=== PATIENT | female | born 1975 | race Caucasian/White ===

== ENCOUNTER 2023-07-27 13:55 | Emergency (ER) | payer BC, SELFPAY ==
[2023-07-27] VITALS (12 sets, daily range): BP systolic 119–144; BP diastolic 72–90; PULSE 56–81; RESP 10–29; TEMP 37; O2SAT 90–99; BMI 28.9
--- NOTE | 2023-07-27 14:11 | ECG_ITS ---
[facility] Test Date: 2023-07-27 Pat Name: RICK WHITE Department: Room: - Gender: Female Laboratory Associate: : 1975 Requested By: [id number] Order Number: [id number] Reading MD: KYLE ALICIA Measurements Intervals [place] Rate: 64 P: 53 [place]: 192 QRS: -31 QRSD: 88 T: 53 QT: 392 QTc: 401 Interpretive Statements 1100 Sinus rhythm 7200 Abnormal left axis deviation 8102 Low QRS voltage in chest leads 9150 abnormal ECG No previous ECG available for comparison Electronically Signed On 07-28-2023 7:04:37 EST by KYLE ALICIA
--- NOTE | 2023-07-27 14:13 | ED.CHESTPAI1 ---
HPI - Chest Pain General Chief Complaint: Chest Pain Stated Complaint: CHEST PAIN Time Seen by Provider: 07/27/23 13:59 Source: patient Mode of arrival: walk-in Limitations: no limitations History of Present Illness HPI narrative: Patient is a 48-year-old female who presents to the emergency department for the evaluation of chest pain in the left upper chest that began this morning on waking at 6 AM. She reports an associated headache. She has had no fevers, cough, congestion. She states she was exposed to COVID but has not had any other flulike illness. No vomiting or diarrhea. She is not concerned for . She has no history of coronary artery disease. She does take medication for high cholesterol. She states she quit smoking 4 to 5 years ago. She has had no peripheral edema. She does take medications for anxiety and GERD. She states pain is worse with inspiration. She has had 2 previous episodes this week, she has not been evaluated for these. No pain radiation to the jaw or the arm. Risk Factors Coronary artery disease risk factors: hyperlipidemia Related Data Home Medications Medication Instructions Recorded Confirmed No Known Home Medications 07/27/23 07/27/23 Previous Rx's Medication Instructions Recorded methylprednisolone 4 mg tablets in See Rx Instructions .Route 07/27/23 a dose pack (Medrol (Ray)) .COMPLEX #21 ea Allergies Allergy/AdvReac Type Severity Reaction Status Date / Time No Known Drug Allergies Allergy Verified 07/27/23 14:00 Review of Systems ROS Constitutional Denies: fever or chills Ears, nose, mouth, and throat Denies: throat pain Cardiovascular Reports: chest pain Respiratory Reports: pain on inspiration; Denies: cough or coughing up blood Gastrointestinal Denies: abdominal pain, nausea or vomiting Musculoskeletal Denies: back pain Integumentary/Breast Denies: rash Neurological Denies: headache Psychiatric Reports: anxiety PFSH PFSH Social History Smoking status: Former smoker Exam Narrative Exam Narrative: Gen.: Awake, alert, in no distress Head: Normocephalic, atraumatic ENT: Moist mucous membranes Respiratory: No respiratory distress, lungs clear bilaterally Cardio: Regular rate and rhythm Gastrointestinal: Abdomen is soft, nondistended and nontender to palpation Extremities: Moves extremities equally, no pedal edema Psych: Normal mood and affect Neuro: No focal neuro deficit Skin: Warm, dry, intact Constitutional Vital Signs, click to edit/add: Last Vital Signs Temp 98.6 F 07/27/23 14:00 Pulse 61 07/27/23 14:00 Resp 18 07/27/23 14:00 BP 144/90 H 07/27/23 14:00 Pulse Ox 99 07/27/23 14:00 O2 Del Method Room Air 07/27/23 14:00 Course Vital Signs Vital signs: Vital Signs Temperature 98.6 F 07/27/23 14:00 Pulse Rate 61 07/27/23 14:00 Respiratory Rate 18 07/27/23 14:00 Blood Pressure 144/90 H 07/27/23 14:00 Pulse Oximetry 99 07/27/23 14:00 Oxygen Delivery Method Room Air 07/27/23 14:00 Temperature 98.6 F 07/27/23 14:00 Pulse Rate 61 07/27/23 14:00 Respiratory Rate 18 07/27/23 14:00 Blood Pressure 144/90 H 07/27/23 14:00 Pulse Oximetry 99 07/27/23 14:00 Oxygen Delivery Method Room Air 07/27/23 14:00 MDM - Chest Pain MDM Narrative Medical decision making narrative: Lab studies including D-dimer, troponin within normal limits, no acute EKG changes noted. Chest x-ray shows no evidence of acute cardiopulmonary changes. Patient medicated with IV fluids, aspirin, Toradol. She refused a COVID screen. She is discharged home with Medrol Dosepak for suspected pleurisy versus chest wall pain. Follow-up with PCP and return to the ER if symptoms change or worsen. Medical Records Data Attestation: I reviewed the patient's medical records. Lab Data Attestation: I reviewed the patient's lab results. Labs: Lab Results 07/27/23 Range/Units 14:15 WBC 6.1 (4.0-11.0) 10^3/uL RBC 3.94 L (4.20-5.40) 10^6/uL Hgb 12.0 (12.0-16.0) g/dL Hct 36.1 (36.0-48.0) % MCV 91.6 (81.0-99.0) fL MCH 30.5 (26.7-34.0) pg MCHC 33.2 (29.9-35.2) g/dL RDW 12.2 (11.0-15.0) % Plt Count 226 (150-450) 10^3/uL MPV 9.7 (9.5-13.5) fL Neut % (Auto) 54.3 (43.0-75.0) % Lymph % (Auto) 33.7 (20.5-60.0) % [facility] % (Auto) 9.5 (1.7-12.0) % Eos % (Auto) 2.0 (0.9-7.0) % Baso % (Auto) 0.3 (0.2-2.0) % Neut # (Auto) 3.3 (1.4-6.5) 10^3/uL Lymph # (Auto) 2.1 (1.2-3.8) 10^3/uL [facility] # (Auto) 0.6 (0.3-0.8) 10^3/uL Eos # (Auto) 0.1 (0.0-0.7) 10^3/uL Baso # (Auto) 0.0 (0.0-0.1) 10^3/uL Abs Immat Gran (auto) 0.01 (0.00-0.03) 10^3/uL Imm/Tot Granulo (auto) 0.2 (0.0-0.5) % PT 10.3 (9.0-11.6) sec INR 0.97 APTT 29.6 (22.3-36.2) sec D-Dimer 0.26 (<=0.59) mg/L FEU Sodium 139 (136-145) mmol/L Potassium 4.0 (3.5-5.1) mmol/L Chloride 105 (98-107) mmol/L Carbon Dioxide 25.6 (21.0-32.0) mmol/L Anion Gap 12.4 BUN 20.0 H (7.0-18.0) mg/dL Creatinine 0.86 (0.55-1.02) mg/dL Est GFR ( Amer) >60 (>=60) Est GFR (Non-Af Amer) >60 (>=60) BUN/Creatinine Ratio 23.3 Glucose 89 (74-106) mg/dL Calcium 8.9 (8.5-10.1) mg/dL Total Bilirubin 0.5 (0.2-1.0) mg/dL AST 11 L (15-37) U/L ALT 17 (14-59) U/L Alkaline Phosphatase 52 (46-116) U/L Troponin I High Sens 4.6 (4.0-51.3) pg/mL NT-Pro-B Natriuret Pep 125.0 (<=450.0) pg/mL Total Protein 8.1 (6.4-8.2) g/dL Albumin 4.1 (3.4-5.0) g/dL Globulin 4.0 g/dL Albumin/Globulin Ratio 1.0 Imaging Data Chest x-ray: Attestation: I have reviewed the pertinent imaging results. Radiologist's impression: Procedure: XR chest 1V EXAM: XR chest 1V TECHNIQUE: Single AP view chest HISTORY: Chest pain COMPARISON: None. FINDINGS: The heart and mediastinum are unremarkable. The lung alvarez are clear of any acute infiltrate, effusion or mass. No acute bony abnormality. IMPRESSION: No acute pulmonary disease. Electronically authenticated by: LEONA TOMPKINS Date: 07/27/2023 15:22 ECG Data Attestation: I personally reviewed and interpreted this ECG as follows: (Normal sinus rhythm at a rate of 64, no acute ST elevation or ectopy. EKG reviewed by attending physician) ECG interpretation date: 07/27/23 ECG interpretation time: 14:19 Heart Score History: Slightly/Non-Suspicious ECG: Normal Age: >45-<65 years Risk Factors: 1 or 2 Risk Factors Troponin: <Normal Limit Total Heart Score Recommendations & Risks:: 2 Discharge Plan Discharge Chief Complaint: Chest Pain Clinical Impression: Chest pain Patient Disposition: Home, Self-Care Time of Disposition Decision: 15:28 Condition: Good Prescriptions / Home Meds: New methylprednisolone [Medrol (Ray)] 4 mg tablets,dose pack See Rx Instructions .ROUTE .COMPLEX Qty: 21 0RF Rx Instructions: Taper as directed No Action No Known Home Medications Instructions: Noncardiac Chest Pain (ED) Stand Alone Forms: Portal Instructions Referrals: BRENDA SMITH [Primary Care Provider] - 1 week
--- NOTE | 2023-07-27 14:20 | PC.NURSE ---
covid swab attempted, pt grabbed this RNs arm and told to stop swab. informed PA to cancel Covid order.
[2023-07-27] MEDS: KETOROLAC TROMETHAMINE 30 MG/ML VIAL IVP (14:27)
[2023-07-27] MEDS: ASPIRIN 81 MG TAB.CHEW 162 MG PO (14:27)
[2023-07-27] MEDS: 0.9 % SODIUM CHLORIDE 1,000 ML 1000 ML IV (14:29)
[2023-07-27 14:36] LABS: D Dimer 0.26 mg/L FEU (<=0.59)
[2023-07-27 14:38] LABS: Alanine Aminotransferase 17 U/L (14-59); Albumin Level 4.1 g/dL (3.4-5.0); Alkaline Phosphatase 52 U/L (46-116); Anion Gap 12.4; Aspartate Amino Transferase 11 U/L (15-37); BUN Creatinine Ratio 23.3; Bilirubin Total 0.5 mg/dL (0.2-1.0); Calcium 8.9 mg/dL (8.5-10.1); Carbon Dioxide 25.6 mmol/L (21.0-32.0); Chloride 105 mmol/L (98-107); Estimated GFR (African America >60 (>=60); Estimated GFR (Non-African Ame >60 (>=60); Glucose 89 mg/dL (74-106); Sodium 139 mmol/L (136-145); Total Protein 8.1 g/dL (6.4-8.2)
[2023-07-27 14:40] LABS: Basophils Percent Auto 0.3 % (0.2-2.0); Eosinophils Absolute Auto 0.1 10^3/uL (0.0-0.7); Hematocrit 36.1 % (36.0-48.0); Immature Granulocytes Abs Auto 0.01 10^3/uL (0.00-0.03); Immature Granulocytes Pct Auto 0.2 % (0.0-0.5); Lymphocytes Absolute Auto 2.1 10^3/uL (1.2-3.8); Lymphocytes Percent Auto 33.7 % (20.5-60.0); Mean Corpuscular HGB Conc 33.2 g/dL (29.9-35.2); Mean Corpuscular Hemoglobin 30.5 pg (26.7-34.0); Mean Corpuscular Volume 91.6 fL (81.0-99.0); Mean Platelet Volume 9.7 fL (9.5-13.5); Monocytes Absolute Auto 0.6 10^3/uL (0.3-0.8); Monocytes Percent Auto 9.5 % (1.7-12.0); Neutrophils Absolute Auto 3.3 10^3/uL (1.4-6.5); Neutrophils Percent Auto 54.3 % (43.0-75.0); Platelet Count 226 10^3/uL (150-450); Red Blood Count 3.94 10^6/uL (4.20-5.40); Red Cell Distribution Width 12.2 % (11.0-15.0); White Blood Count 6.1 10^3/uL (4.0-11.0)
[2023-07-27 14:44] LABS: Troponin I High Sensitivity 4.6 pg/mL (4.0-51.3)
--- NOTE | 2023-07-27 14:50 | XR_ITS ---
The [address] [address] Patient Name: RICK WHITE MRN: [id number] date: 1975 Sex: F Assigned Patient Location: ER Current Patient Location: ED.MAIN Accession/Order Number: [id number] Exam Date: 07/27/2023 14:45 Report Date: 07/27/2023 15:22 At the request of: MIKE ANDERSON Procedure: XR chest 1V EXAM: XR chest 1V TECHNIQUE: Single AP view chest HISTORY: Chest pain COMPARISON: None. FINDINGS: The heart and mediastinum are unremarkable. The lung alvarez are clear of any acute infiltrate, effusion or mass. No acute bony abnormality. XR/XR chest 1V IMPRESSION: No acute pulmonary disease. Electronically authenticated by: LEONA TOMPKINS Date: 07/27/2023 15:22
[2023-07-27 15:00] LABS: INR 0.97; Partial Thromboplastin Time 29.6 sec (22.3-36.2); Prothrombin Time 10.3 sec (9.0-11.6)
== END 2023-07-27 15:40 | disposition home or self-care (01) ==
PROVIDERS: Physician Assistant; Emergency Provider Emergency Medicine Emergency Medical Services; PCP Family Medicine
DX: R07.9 Chest pain, unspecified (principal); E78.00 Pure hypercholesterolemia, unspecified; Z79.899 Other long term (current) drug therapy; Z87.891 Personal history of nicotine dependence
CPT/HCPCS: 36415; 71045; 80053; 83880; 84484; 85025; 85378; 85610; 85730; 87811; 93005; 96374; 99285